=== PATIENT | male | born 1990 | race Two or more races ===

== ENCOUNTER 2019-07-23 18:23 | Emergency (ER) | payer MEDICAID ==
[~2019-07-23] VITALS: Ht 172.7 cm; Wt 72.6 kg
[2019-07-23 19:22] LABS: Basophils # (auto) 0 uL; Basophils % (auto) 0.2 % (0.0-2.0); Eosinophils # (auto) 0 uL; Hematocrit 48.1 % (41.0-53.0); Hemoglobin 16.7 g/dL (13.5-17.5); Lymphocytes % (auto) 12.9 % (10.0-50.0); Mean Corpuscular Hemoglobin 30.8 pg (28.0-32.0); Mean Corpuscular Hgb Conc. 34.6 g/dL (32.0-36.0); Mean Corpuscular Volume 88.9 fL (80.0-100.0); Monocytes # (auto) 0.6 uL; Monocytes % (auto) 7.5 % (0.0-12.0); Neutrophils # (auto) 5.9 uL; Neutrophils % (auto) 79.4 % (37.0-80.0); Platelet Count (auto) 112 10^3/uL (140-450); Red Blood Cells 5.41 10^6/uL (4.5-5.90); Red Cell Distribution Width 13.3 % (11.8-14.3); White Blood Cell 7.5 10^3/uL (4.4-10.8)
[2019-07-23 19:49] LABS: Albumin 3.8 g/dL (3.4-5.0); Calcium 8.7 mg/dL (8.5-10.1); Potassium 3.2 mmol/L (3.5-5.1)
[2019-07-23 19:51] LABS: BUN/Creatinine Ratio 9.7; Bilirubin, Total 0.3 mg/dL (0.2-1.0)
[2019-07-23 21:09] VITALS: BP 110/66
== END 2019-07-23 21:15 | disposition home or self-care (01) ==
LOC: EDBD 18:23 → ER 18:28
DX: K52.9 Noninfective gastroenteritis and colitis, unspecified (principal); J20.9 Acute bronchitis, unspecified
CPT/HCPCS: 36415; 80053; 85025

== ENCOUNTER 2022-05-03 21:06 | Emergency (ER) | payer MEDICAID ==
[~2022-05-03] VITALS: Ht 177.8 cm; Wt 74.6 kg
[2022-05-03 21:40] VITALS: BP 120/74
== END 2022-05-04 01:32 | disposition left against medical advice (07) ==
LOC: ER 21:06
DX: T22.012A Burn of unspecified degree of left forearm, initial encounter (principal); Z53.21 Procedure and treatment not carried out due to patient leaving prior to being seen by health care provider